=== PATIENT | male | born 1950 | race Caucasian/White ===

== ENCOUNTER → 2017-11-23 | Outpatient (REF) | payer MEDICARE, OTHER ==
[~2017-11-23] MED LIST: ACE500 PO; BIS10S PR; ENO40I SQ; FURO-45 PO; HYDR-385 PO; LOR7.5/325 PO; MAGN30OR2 PO; MOM PO; OXY10 PO; PER PO; PRED20TA6 PO; TIO18R INH; WAR75 PO; [UNRECOGNIZED DRUG - CODE] SQ
== END ==
LOC: ZZSENDIN 12:41
PROVIDERS: ATTEND Nurse Practitioner Family
DX: S81.801A Unspecified open wound, right lower leg, initial encounter (principal); B96.89 Other specified bacterial agents as the cause of diseases classified elsewhere
CPT/HCPCS: 87071